=== PATIENT | female | born 1980 | race Caucasian/White ===

== ENCOUNTER 2021-12-21 22:56 | Emergency (ER) | payer OTHER, SELFPAY ==
--- NOTE | ~2021-12-21 | CT_ITS ---
EXAMINATION: CT abdomen pelvis w con DATE: 12/22/2021 01:56 INDICATION: Abdominal pain. Nausea and vomiting. TECHNIQUE: Computed tomography (CT) of the abdomen and pelvis was performed with 100 mL Omnipaque 300 intravenous contrast. Automated exposure control and iterative reconstruction technique were employe d. The dose-length product was 202.17 mGy-cm. COMPARISON: CT abdomen and pelvis 06/29/2016 FINDINGS: The visualized portions of the lung bases demonstrate calcified left lung nodule, consisten t with old granulomatous disease. No pleural effusion. The heart size is normal. No pericardial effus ion. There is periportal edema in the liver. There is delayed contrast enhancement of the liver relat natacha to the kidneys. The gallbladder is normal in size. Gallbladder wall thickening is noted, likely i nterstitial edema. The spleen, pancreas, adrenal glands, and kidneys are normal. There are no dilated loops of bowel. There are no pathologically enlarged lymph nodes. There is physiologic fluid in the pelvis. There is a tampon in the vagina. There is mild lumbar spondylosis. IMPRESSION: 1. Periportal edema. Gallbladder wall edema. Reviewed, dictated and finalized at location A.
[2021-12-21 23:49] VITALS: BP 142/79; PULSE 50; RESP 16; TEMP 36.4; O2SAT 100
[2021-12-21 23:57] VITALS: PULSE 47; RESP 10; O2SAT 100
[2021-12-21 23:58] VITALS: BP 148/93; PULSE 43; RESP 13; O2SAT 100
[2021-12-22] VITALS (21 sets, daily range): BP systolic 137–162; BP diastolic 68–103; PULSE 40–64; RESP 11–20; O2SAT 90–100
[2021-12-22 00:25] LABS: Basophils Percent Auto 0.3 % (0.2-1.2); Eosinophils Percent Auto 0.5 % (0-4.4); Hematocrit 37.3 % (37.0-47.0); Hemoglobin 12.6 g/dL (12.0-15.0); Immature Granulocyte Absolute 0.03 K/mm3 (0.00-0.031); Immature Granulocyte Percent A 0.5 % (0-0.5); Lymphocytes Absolute Auto 1.34 K/mm3 (0.9-3.2); Lymphocytes Percent Auto 22.9 % (18.3-44.2); Mean Corpuscular HGB Conc 33.8 g/dl (32-36); Mean Corpuscular Hemoglobin 30.2 pg (26-34); Mean Corpuscular Volume 89.4 fl (80-100); Mean Platelet Volume 9.8 fl (7.4-10.4); Monocytes Absolute Auto 0.2 K/mm3 (0.1-0.6); Monocytes Percent Auto 4.1 % (2.6-8.5); Neutrophils Absolute Auto 4.2 K/mm3 (1.3-6.7); Neutrophils Percent Auto 71.7 % (45.5-73.1); Platelet Count Result 263 k/mm3 (150-375); Red Blood Count 4.17 M/mm3 (4.2-5.4); Red Cell Distribution Width 12.7 % (11.5-14.5); White Blood Count 5.8 K/mm3 (4.5-10.0)
[2021-12-22 00:42] LABS: Alanine Aminotransferase 57 U/L (6-35); Albumin Level 4.4 g/dL (3.5-5.1); Alkaline Phosphatase 79 U/L (38-126); Anion Gap 6 mmol/L (8-16); Aspartate Amino Transferase 60 U/L (14-36); Bilirubin,Total 0.3 mg/dL (0.2-1.3); Blood Urea Nitrogen 9 mg/dL (7-17); Calcium 8.5 mg/dL (8.4-10.2); Carbon Dioxide 26 mmol/L (22-30); Chloride 103 mmol/L (98-107); Estimated CRCL calculation 71 ml/min; Estimated Glomerular Filt Rate > 60; Glucose 130 mg/dL (65-110); Lipase 48 U/L (23-300); Potassium 4.1 mmol/L (3.4-5.0); Sodium 135 mmol/L (137-145)
[2021-12-22] MEDS: ONDANSETRON INJ 4 MG/2 ML VIAL IV PUSH (00:45)
[2021-12-22] MEDS: fentaNYL CITRATE INJ (*CRX) 100 MCG/2 ML VIAL 50 MCG IV PUSH (00:45)
[2021-12-22] MEDS: SODIUM CHLORIDE 0.9% IV 1,000 ML 999 ML IV CONT (00:45)
[2021-12-22 01:55] LABS: Appearance Urine Clear (Clear); Bilirubin Urine Negative (Negative); Blood Urine Negative (Negative); Color Urine Yellow (Yellow); Glucose Urine UA Negative (Negative); Ketones Urine 2+ mg/dL (Negative); Leukocyte Esterase Ur Negative LEU/UL (Negative); Nitrate Urine Negative (Negative); Protein Urine Negative (Negative); Urobilinogen Urine 0.2 mg/dL (<2.0); pH Urine 7.5 (5.0-9.0)
[2021-12-22 02:02] LABS: Mucus Urine Rare /lpf; Squamous Epithelial Cell Urine Rare /hpf (Few); WBC Urine 0-3 /hpf
[2021-12-22 02:05] LABS: Add Urine Microscopic? YES
[2021-12-22] MEDS: fentaNYL CITRATE INJ (*CRX) 100 MCG/2 ML VIAL 25 MCG IV PUSH (02:27)
--- NOTE | 2021-12-22 03:07 | ED.ABDPAIN ---
HPI - Abdominal Pain General Chief Complaint: Abdominal Pain Stated Complaint: overy pain Time Seen by Provider: 12/22/21 00:08 Source: patient Mode of arrival: ambulatory Limitations: no limitations History of Present Illness HPI narrative: 41-year-old female presents today with complaints of abdominal pain that started about 3:00 but got worse at 5 PM. During examination patient is in the position crying. Patient with history of ovarian cyst. Patient states she has never felt pain like this before. Patient states the pain is worse than labor. Patient denies nausea, vomiting, back pain, recent illness. Patient tender to right lower quadrant. Related Data Home Medications Medication Instructions Recorded Confirmed bupropion HCl 150 mg tablet,12 hr PO 06/29/19 sustained-release dextroamphetamine-amphetamine ER PO 06/29/19 20 mg 24hr capsule,extend release (Adderall XR) levothyroxine 88 mcg tablet 06/29/19 vitamin with calcium tablet 06/29/19 no.72-iron 27 mg-folic acid 1 mg tablet (PrePlus) Allergies Allergy/AdvReac Type Severity Reaction Status Date / Time Penicillins Allergy Unknown Anaphylaxis Verified 12/21/21 23:52 Review of Systems Review of Systems: CONSTITUTIONAL: Denies fever, chills, or sweats. EYES: Denies visual changes, redness, or discharge. ENT: Denies rhinorrhea, congestion, sore throat, or otalgia. CARDIOVASCULAR: Denies chest pain, palpitations, or edema. RESPIRATORY: Denies cough or dyspnea. GASTROINTESTINAL: Positive for abdominal pain. Denies nausea, vomiting, or diarrhea. GENITOURINARY: Denies dysuria or hematuria. SKIN: Denies rash or itching. MUSCULOSKELETAL: Denies back pain, joint pain, or myalgia. NEUROLOGIC: Denies headache, numbness, dizziness, or weakness. PSYCHIATRIC: Denies anxiety or depression. Exam Narrative: GENERAL:illl-appearing, well-nourished, and in moderate distress. HEAD: Normocephalic, atraumatic. EYES: PERRLA and EOMI. NECK: Supple. No adenopathy or masses. No carotid bruits or JVD CHEST: Clear to auscultation. No respiratory distress. No wheezes rales or rhonchi HEART: Regular rate and rhythm. No murmur heard. Normal peripheral pulses. ABDOMEN: Soft, generalized abdominal tenderness, nondistended, normal active bowel sounds. EXTREMITIES: Normal range of motion. No edema. SKIN: Warm, dry, no rash. NEURO: No focal deficits. Alert and oriented x3. PSYCH: Normal mood and affect. Course Course Emergency Course: Patient still with pain after 2 doses of fentanyl and Toradol. Patient currently rating her pain tolerable. CT reviewed with patient. Labs reviewed. Patient to be discharged home with oral pain medications. Plan follow-up with primary and OB. Vital Signs Vital signs: Vital Signs Temperature 36.4 C 12/21/21 23:49 Pulse Rate 50 L 12/21/21 23:49 Respiratory Rate 16 12/21/21 23:49 Blood Pressure 142/79 H 12/21/21 23:49 Pulse Oximetry 100 12/21/21 23:49 Oxygen Delivery Room Air 12/21/21 23:49 Temperature 36.4 C 12/21/21 23:49 Pulse Rate 50 L 12/21/21 23:49 Respiratory Rate 16 12/21/21 23:49 Blood Pressure 142/79 H 12/21/21 23:49 Pulse Oximetry 100 12/21/21 23:49 Oxygen Delivery Room Air 12/21/21 23:49 MDM - Abdominal Pain MDM Narrative Medical decision making narrative: 41-year-old female HPI as noted. Suspect renal calculi versus appendicitis versus abdominal pain. CBC without concerning findings. CMP shows sodium 135, GFR greater than 60, AST and ALT slightly elevated at 60 and 57. Alk phos was normal at 79. Urine without signs of infection. CT shows small free pelvic fluid nonspecific but could reflect rupture of an ovarian cyst or follicle. Patient does endorse history of ovarian cyst. Also shows possible nonspecific enterocolitis. Nonspecific periportal edema noted patient instructed to follow-up with primary. Differential Diagnosis Differential diagnosis: Likel
[2021-12-22] MEDS: KETOROLAC 30 MG/ML VIAL (*BKC) IV PUSH (03:54)
== END 2021-12-22 05:15 | disposition home or self-care (01) ==
PROVIDERS: Emergency Medicine; Emergency Provider Nurse Practitioner Family; PCP Family Medicine Sports Medicine
DX: R10.9 Unspecified abdominal pain (principal); N83.8 Other noninflammatory disorders of ovary, fallopian tube and broad ligament
CPT/HCPCS: 36415; 74177; 80053; 81001; 81025; 83690; 85025; 96361; 96374; 96375; 96376; 99284; J1885; J2405; J3010; J7030; Q9967

== ENCOUNTER 2021-12-25 14:22 | Observation (INO) | payer OTHER, SELFPAY ==
--- NOTE | ~2021-12-25 | US_ITS ---
EXAMINATION: US abdomen limited DATE: 12/25/2021 16:34 INDICATION: Abdominal pain. TECHNIQUE: Multiple grayscale and Doppler ultrasound images of limited portions of the abdomen were o btained. COMPARISON: CT abdomen pelvis 12/22/2021. FINDINGS: Visualized portions of the pancreas are normal. Slight hyperechogenicity of the liver paren chyma. Subtle findings of periportal edema present, not as pronounced as in the prior CT. No surface nodularity. Normal hepatopetal flow in the main portal vein. The gallbladder is normal with no abnorm al wall thickening (gallbladder wall measures 2.4 mm), pericholecystic fluid or stones. The normal co mmon bile duct measures 3 mm. Positive sonographic Brunson sign. IMPRESSION: 1. Positive sonographic Brunson sign, with otherwise normal sonographic appearance of the gallbladder. Consider hepatobiliary scanning for further evaluation. 2. Increased liver echogenicity as can be seen with steatosis, fibrosis, and hepatitis. 3. Mild periportal edema. Reviewed, dictated and finalized at location K. IMPRESSION: 1. Positive sonographic Brunson sign, with otherwise normal sonographic appearan ce of the gallbladder. Consider hepatobiliary scanning for further evaluation. 2. Increased liver echogenicity as can be seen with steatosis, fibrosis, and he patitis. 3. Mild periportal edema.
--- NOTE | ~2021-12-25 | CT_ITS ---
EXAMINATION: CT abdomen pelvis w con DATE: 12/25/2021 17:55 INDICATION: Abdominal pain. Right upper quadrant pain. TECHNIQUE: Computed tomography (CT) of the abdomen and pelvis was performed with 100 mL Omnipaque-300 intravenous contrast. Automated exposure control and iterative reconstruction technique were employe d. The dose-length product was 188.67 mGy-cm. COMPARISON: 12/22/2021. FINDINGS: Lower thorax: Unremarkable Liver: Heterogeneous enhancement of the liver parenchyma. Mild enlargement. Biliary/Gallbladder: Gallbladder is normal. No bile duct dilation. Pancreas: No mass or duct dilation. Spleen: Normal. Adrenals:No mass. Kidneys: No mass, stone, or hydronephrosis. GI tract: Distal esophageal and gastric wall edema. No small or large bowel dilation. Appendix not vi sualized. Mesentery/Peritoneum: No ascites, mass, or free air. Retroperitoneum: No mass. Pelvis: Pelvic organs are within normal limits. Soft Tissues: Soft tissues and body wall unremarkable. Bones: No acute osseous finding. IMPRESSION: Esophagitis/gastritis. Interval resolution of the previously described gallbladder wall edema and per iportal edema. Heterogeneous liver parenchyma as can be seen with fibrosis and hepatitis. Reviewed, dictated and finalized at location K. IMPRESSION: Esophagitis/gastritis. Interval resolution of the previously described gallblad noy wall edema and periportal edema. Heterogeneous liver parenchyma as can be s een with fibrosis and hepatitis.
--- NOTE | ~2021-12-25 | NM_ITS ---
EXAMINATION: NM hepatobiliary w pharm DATE: 12/27/2021 09:07 INDICATION: Possible cholecystitis COMPARISON: None. TECHNIQUE: 5 mCi Tc-99m mebrofenin (Choletec) was administered intravenously. Scintigraphic images o f the abdomen were obtained for one hour. 1 mcg sincalide (Kinevac) was administered by slow intraven ous infusion, and imaging was continued for 30 minutes. Gallbladder ejection fraction was calculated by the technologist. FINDINGS: There is normal clearance of radiotracer from the blood pool. There is homogeneous tracer uptake by t he liver. Activity progresses to the gallbladder and bowel. The gallbladder ejection fraction (GBEF) is 79% (normal 10-90%, but most patient with gallbladder dysfunction have GBEF < 35% which does over lap with the normal range). IMPRESSION: 1. Normal hepatobiliary scan Reviewed, dictated and finalized at location A.
[2021-12-25 14:26] VITALS: BP 134/84; PULSE 57; RESP 18; O2SAT 98
--- NOTE | 2021-12-25 14:40 | ED.ABDPAIN ---
HPI - Abdominal Pain General Chief Complaint: Abdominal Pain Stated Complaint: abd pain Time Seen by Provider: 12/25/21 14:24 Source: RN notes reviewed History of Present Illness HPI narrative: Patient presents emergency room from home for abdominal pain. Patient states pain began approximately 11 AM today. The pain is located in the right side the abdomen does not radiate described as sharp and stabbing. Associated nausea vomiting. Denies any fevers or chills chest pain shortness of breath diarrhea or any other symptoms. States she not take anything for the pain at home. Patient was seen here earlier this week for abdominal pain and was diagnosed with ovarian cyst at that time and sent home states her pain has been better until this afternoon Related Data Home Medications Medication Instructions Recorded Confirmed bupropion HCl 150 mg tablet,12 hr PO 06/29/19 sustained-release dextroamphetamine-amphetamine ER PO 06/29/19 20 mg 24hr capsule,extend release (Adderall XR) levothyroxine 88 mcg tablet 06/29/19 vitamin with calcium tablet 06/29/19 no.72-iron 27 mg-folic acid 1 mg tablet (PrePlus) Allergies Allergy/AdvReac Type Severity Reaction Status Date / Time Penicillins Allergy Unknown Anaphylaxis Verified 12/25/21 14:38 Review of Systems Review of Systems: Gen.: Denies fevers or chills ENT: Denies congestion Respiratory: Denies shortness of breath or cough CV: Denies chest pain or palpitations GI: See HPI denies burning, urgency, frequency or hematuria Musculoskeletal: Denies back pain or muscle pain Neuro: Denies numbness, tingling, weakness or focal weakness Skin: Denies rash Except as documented, all other systems reviewed and negative [facility] Past Medical History Medical History (Updated 12/25/21 @ 18:12 by Mukesh Noel DO) Patient denies significant medical history Social History Social History (Updated 12/25/21 @ 14:41 by Mukesh Noel DO) Smoking status: Never smoker Exam Narrative: APPEARANCE: No acute distress, nontoxic, resting in bed HEENT: Normocephalic, atraumatic, OMM RESPIRATORY: No respiratory distress, clear to auscultation bilaterally with no rhonchi wheezing or rales CARDIOVASCULAR: RRR s murmur ABDOMINAL: Soft nondistended tender palpation right upper quadrant right lower quadrant mild tenderness left upper quadrant left lower quadrant no rebound or guarding MUSCULOSKELETAl: Moves all extremities. No clubbing, cyanosis or edema. NEURO: Awake and alert. Following commands, speech normal, no focal deficits SKIN:: Warm, dry. Normal Color PSYCHIATRIC: Normal affect/mood Course Course Emergency Course: Reviewed previous records including previous CT scan Patient went for ultrasound shows positive sonographic Brunson's continues to have severe pain in the right side of the abdomen with tenderness palpation we will repeat CT scan at this time Discussed with Dr. Ortiz presentation work-up agrees with consult Discussed with RINA Cason for Dr. Burleson agrees with admission Discussed with patient and family results of workup and diagnosis. Discussed need for admission. Patient and family understand and agree to current treatment plan Vital Signs Vital signs: Vital Signs Pulse Rate 57 L 12/25/21 14:26 Respiratory Rate 18 12/25/21 14:26 Blood Pressure 134/84 12/25/21 14:26 Pulse Oximetry 98 12/25/21 14:26 Oxygen Delivery Room Air 12/25/21 14:26 Pulse Rate 57 L 12/25/21 14:26 Respiratory Rate 18 12/25/21 14:26 Blood Pressure 134/84 12/25/21 14:26 Pulse Oximetry 98 12/25/21 14:26 Oxygen Delivery Room Air 12/25/21 14:26 MDM - Abdominal Pain Lab Data Result diagrams: 12/25/21 14:35 12/25/21 14:35 Labs: Lab Results 12/25/21 12/25/21 12/25/21 Range/Units 14:35 14:35 15:25 WBC 8.9 (4.5-10.0) K/mm3 RBC 5.22 (4.2-5.4) M/mm3 Hgb 15.4 H (12.0-15.0) g
[2021-12-25] MEDS: KETOROLAC 30 MG/ML VIAL (*BKC) IV PUSH (14:41)
[2021-12-25] MEDS: SODIUM CHLORIDE 0.9% IV 1,000 ML 999 ML IV CONT (14:41)
[2021-12-25] MEDS: ONDANSETRON INJ 4 MG/2 ML VIAL IV PUSH (14:42)
[2021-12-25 14:47] LABS: Basophils Absolute Auto 0.1 K/mm3 (0.0-0.1); Basophils Percent Auto 0.6 % (0.2-1.2); Eosinophils Absolute Auto 0.1 K/mm3 (0-0.3); Eosinophils Percent Auto 1.5 % (0-4.4); Hematocrit 45.3 % (37.0-47.0); Hemoglobin 15.4 g/dL (12.0-15.0); Immature Granulocyte Absolute 0.02 K/mm3 (0.00-0.031); Immature Granulocyte Percent A 0.2 % (0-0.5); Lymphocytes Absolute Auto 3.06 K/mm3 (0.9-3.2); Lymphocytes Percent Auto 34.2 % (18.3-44.2); Mean Corpuscular Hemoglobin 29.5 pg (26-34); Mean Corpuscular Volume 86.8 fl (80-100); Mean Platelet Volume 9.2 fl (7.4-10.4); Monocytes Absolute Auto 0.9 K/mm3 (0.1-0.6); Monocytes Percent Auto 9.6 % (2.6-8.5); Neutrophils Absolute Auto 4.8 K/mm3 (1.3-6.7); Neutrophils Percent Auto 53.9 % (45.5-73.1); Platelet Count Result 373 k/mm3 (150-375); Red Blood Count 5.22 M/mm3 (4.2-5.4); Red Cell Distribution Width 12.4 % (11.5-14.5); White Blood Count 8.9 K/mm3 (4.5-10.0)
[2021-12-25 15:04] LABS: Alanine Aminotransferase 36 U/L (6-35); Albumin Level 4.9 g/dL (3.5-5.1); Alkaline Phosphatase 91 U/L (38-126); Anion Gap 8 mmol/L (8-16); Aspartate Amino Transferase 26 U/L (14-36); Bilirubin,Total 0.5 mg/dL (0.2-1.3); Blood Urea Nitrogen 13 mg/dL (7-17); Calcium 8.9 mg/dL (8.4-10.2); Carbon Dioxide 29 mmol/L (22-30); Chloride 99 mmol/L (98-107); Estimated CRCL calculation 63 ml/min; Estimated Glomerular Filt Rate > 60; Glucose 113 mg/dL (65-110); Lipase 141 U/L (23-300); Potassium 3.2 mmol/L (3.4-5.0); Sodium 136 mmol/L (137-145)
[2021-12-25 15:49] LABS: Appearance Urine Clear (Clear); Bilirubin Urine 1+ (Negative); Blood Urine Negative (Negative); Color Urine Yellow (Yellow); Glucose Urine UA Negative (Negative); Ketones Urine 2+ mg/dL (Negative); Leukocyte Esterase Ur Negative LEU/UL (Negative); Nitrate Urine Negative (Negative); Protein Urine Negative (Negative); Specific Grav Ur 1.025 (1.001-1.035); Urobilinogen Urine 0.2 mg/dL (<2.0); pH Urine 5.5 (5.0-9.0)
[2021-12-25 15:52] LABS: Bacteria Urine Trace /hpf; Calcium Oxalate Crystals Urine Present /hpf; Mucus Urine Rare /lpf; RBC Urine 0-2 /hpf (0-2); Squamous Epithelial Cell Urine Few /hpf (Few); WBC Urine 0-3 /hpf
[2021-12-25 15:53] LABS: Add Urine Microscopic? YES
[2021-12-25] MEDS: MORPHINE SULFATE (*CRX) 4 MG/ML INJ IV PUSH (15:56)
[2021-12-25] MEDS: MORPHINE SULFATE (*CRX) 2 MG/ML INJ IV PUSH ×2 (17:30→20:07)
[2021-12-25] MEDS: PROMETHAZINE HCL 25 MG/ML AMPUL 12.5 MG IV PUSH (17:56)
[2021-12-25] MEDS: SODIUM CHLORIDE 0.9% IV 50 ML 350 ML (17:57)
--- NOTE | 2021-12-25 18:00 | PM.IMHP ---
H&P: HPI History of Present Illness Date/Time: 12/25/21 18:00 Chief Complaint: Abdominal pain, nausea, vomiting. Narrative: This is a pleasant 41-year-old female with history of ovarian cyst and hypothyroidism who presented to the emergency department from home for evaluation of abdominal pain, nausea, and vomiting. She had pasta with Won sauce for lunch last Sunday and not long thereafter she developed severe, right-sided abdominal pain. The pain continued for several hours and she was seen in the emergency department later that evening and she felt better after receiving 2 doses of fentanyl; she states Toradol did not help whatsoever. AST and ALT were slightly elevated and her other labs were pretty unremarkable. CT of the abdomen and pelvis showed a small amount of free fluid in the pelvis and with her history of ovarian cysts it was thought that her pain was likely related to the same and she was discharged home with instructions to follow-up with her intelligence officer basic. She felt better the last couple of days however last night after eating fast food for dinner her pain returned. Her pain now seems to be diffusely throughout the upper abdomen and it is associated with sweats, nausea, and vomiting. She tried to take the hydrocodone that she was prescribed last week though that did not seem to help much. She had a positive sonographic Brunson's sign on right upper quadrant ultrasound of the gallbladder was otherwise normal. A subsequent CT of the abdomen and pelvis did show findings of esophagitis and gastritis; gallbladder was normal. With further questioning she rarely has indigestion. She does not drink any significant quantities of alcohol or caffeine. She takes ibuprofen may be a couple of times a month for generalized aches and pains. She denies hematemesis, melena, and hematochezia. She has no sick contacts. No diarrhea. No fever or chills. Review of Systems Review of Systems: Twelve systems were reviewed and are negative except for as per HPI. [facility] Past Medical History Medical History (Updated 12/25/21 @ 22:48 by Kamla Hughes PA-C) Hypothyroidism Surgical History Surgical History (Updated 12/25/21 @ 22:43 by Kamla Hughes PA-C) History of repair of ACL Bilateral. Family History Family History (Updated 12/25/21 @ 22:43 by Kamla G. Gerling, PA-C) Other No significant family history Social History Social History (Updated 12/25/21 @ 22:44 by Kamla Hughes PA-C) Social History: Surrogate decision maker: Skinny Acuña, spouse. Code status: Full code. Smoking status: Light tobacco smoker Tobacco type: cigarettes and e-cigarettes/vaping Second hand tobacco smoke exposure: Yes Alcohol intake: never Substance use: current Substance use type: marijuana Additional living arrangements comments: The patient lives with her and their 2 young children in [place]. 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 Spiritual care concerns: No Meds Home Medications and Allergies Home Medications Medication Instructions Recorded Confirmed Type bupropion HCl 150 mg tablet,12 hr 150 mg PO DAILY 06/29/19 12/25/21 History sustained-release dextroamphetamine-amphetamine ER 20 mg PO DAILY 06/29/19 12/25/21 History 20 mg 24hr capsule,extend release (Adderall XR) levothyroxine 88 mcg tablet 25 mcg PO DAILY 06/29/19 12/25/21 History hydrocodone 7.5 mg-acetaminophen 1 tablet PO Q8H PRN pain #12 tabs 12/22/21 12/25/21 Rx 325 mg tablet ondansetron 4 mg disintegrating 4 mg PO Q8H PRN nausea and 12/22/21 12/25/21 Rx tablet vomiting #14 tabs vits no.126-ferrous fum 1 tablet PO DAILY 12/25/21 12/25/21 History 28 mg iron-folic acid 800 mcg tablet (Classic ) vitamin E 1,000 unit tablet 1,000 tablet PO DAILY 12/25/21 12/25/21 History Allergies Allergy/AdvReac Type Severity Reaction Status Date / Time Penicillins Al
[2021-12-25] MEDS: PANTOPRAZOLE SODIUM IV 40 MG VIAL IV PUSH (18:34)
[2021-12-25] MEDS: SODIUM CHLORIDE 0.9% IV 1,000 ML 100 ML IV CONT (18:34)
[2021-12-25 20:31] VITALS: BP 145/90; PULSE 54; RESP 16; TEMP 36.4; O2SAT 100
[2021-12-25 20:35] VITALS: BMI 19.2
--- NOTE | 2021-12-25 21:24 | ADMGEN ---
This patient, Marcela Acuña, was admitted to Medical Room 246-01. Patient/family oriented to hospital policies and general routines including ID bracelet, bed and alarms, visiting hours, pain management, procedures, bathroom and other care routines, personal items, smoking policy, room service/diet, and visiting hours. Information on how to activate the Rapid Response Team has been discussed. Patient/Family are encouraged to report perceived risks to care and to ask questions if they do not understand what they are told or what they should do.
[2021-12-25 21:56] VITALS: BP 140/67; PULSE 55; RESP 14; TEMP 37.1; O2SAT 98
[2021-12-25] MEDS: POTASSIUM CHLORIDE 20 MEQ TABLET PO (23:20)
[2021-12-26] MEDS: SODIUM CHLORIDE 0.9% IV 1,000 ML 100 ML IV CONT ×2 (05:22→15:43)
[2021-12-26 05:25] LABS: Basophils Absolute Auto 0.1 K/mm3 (0.0-0.1); Basophils Percent Auto 0.8 % (0.2-1.2); Eosinophils Absolute Auto 0.1 K/mm3 (0-0.3); Eosinophils Percent Auto 1.6 % (0-4.4); Hematocrit 38.2 % (37.0-47.0); Hemoglobin 12.9 g/dL (12.0-15.0); Immature Granulocyte Absolute 0.02 K/mm3 (0.00-0.031); Immature Granulocyte Percent A 0.3 % (0-0.5); Lymphocytes Absolute Auto 2.41 K/mm3 (0.9-3.2); Lymphocytes Percent Auto 37.9 % (18.3-44.2); Mean Corpuscular HGB Conc 33.8 g/dl (32-36); Mean Corpuscular Hemoglobin 30.1 pg (26-34); Mean Platelet Volume 9.6 fl (7.4-10.4); Monocytes Absolute Auto 0.9 K/mm3 (0.1-0.6); Monocytes Percent Auto 14.3 % (2.6-8.5); Neutrophils Absolute Auto 2.9 K/mm3 (1.3-6.7); Neutrophils Percent Auto 45.1 % (45.5-73.1); Platelet Count Result 295 k/mm3 (150-375); Red Blood Count 4.29 M/mm3 (4.2-5.4); Red Cell Distribution Width 12.6 % (11.5-14.5); White Blood Count 6.4 K/mm3 (4.5-10.0)
[2021-12-26 05:43] VITALS: BP 132/75; PULSE 62; RESP 14; TEMP 36.7; O2SAT 99
[2021-12-26 05:51] LABS: Alanine Aminotransferase 23 U/L (6-35); Albumin Level 3.6 g/dL (3.5-5.1); Alkaline Phosphatase 58 U/L (38-126); Anion Gap 4 mmol/L (8-16); Aspartate Amino Transferase 19 U/L (14-36); Bilirubin,Total 0.6 mg/dL (0.2-1.3); Blood Urea Nitrogen 7 mg/dL (7-17); Calcium 7.6 mg/dL (8.4-10.2); Carbon Dioxide 26 mmol/L (22-30); Chloride 104 mmol/L (98-107); Estimated CRCL calculation 71 ml/min; Estimated Glomerular Filt Rate > 60; Glucose 101 mg/dL (65-110); Lipase 184 U/L (23-300); Potassium 3.8 mmol/L (3.4-5.0); Sodium 134 mmol/L (137-145)
[2021-12-26] MEDS: LEVOTHYROXINE SODIUM 25 MCG TABLET PO (05:54)
[2021-12-26] MEDS: PANTOPRAZOLE SODIUM IV 40 MG VIAL IV PUSH (07:28)
[2021-12-26] MEDS: MORPHINE SULFATE (*CRX) 2 MG/ML INJ IV PUSH ×4 (07:31→23:33)
--- NOTE | 2021-12-26 11:15 | PM.IMPN ---
Progress Note: A&P Assessment and Plan (1) Abdominal pain: Code(s): R10.9 - Unspecified abdominal pain Status: Acute Assessment and Plan: CT of the abdomen and pelvis on 12/22/2021 showed gallbladder wall thickening which was felt to be secondary to interstitial edema repeat CT today gallbladder was unremarkable Symptoms are more likely related to esophagitis/gastritis Right upper abdominal pain after eating fatty meals gallbladder dysfunction should be considered HIDA scan ordered General surgery on board Liver enzymes slightly elevated upon admission, currently normal IV fluids for hydration Zofran for nausea Pain medications on board GI also consulted (2) Esophagitis with gastritis: Code(s): K29.70 - Gastritis, unspecified, without bleeding; K20.90 - Esophagitis, unspecified without bleeding Status: Acute Assessment and Plan: CT of the abdomen shows gastritis/esophagitis GI consulted Supportive care IV fluids Pain medications Zofran IV protonix also on board (3) Dehydration: Code(s): E86.0 - Dehydration Status: Acute Assessment and Plan: Continue judicious IV fluid rehydration. (4) Hypothyroidism: Code(s): E03.9 - Hypothyroidism, unspecified Status: Acute Assessment and Plan: Continue levothyroxine TSH 3.830 Time Spent With Patient Time with patient: Greater than 35 minutes Subjective Date/time seen: 12/26/21 11:15 Interval history: 12/26/21 1115 Patient states she is doing okay today however she does have some pain still which is a dull ache especially on the right side. Patient rates her pain as 6/10. She denies having any nausea or vomiting at this time but she does get short of breath with the pain. She denies any chest pain, diarrhea, constipation, weakness or fatigue. Patient is due for a HIDA scan in the morning. 12/25/21? 18:00 This is a pleasant 41-year-old female with history of ovarian cyst and hypothyroidism who presented to the emergency department from home for evaluation of abdominal pain, nausea, and vomiting. She had pasta with Won sauce for lunch last Sunday and not long thereafter she developed severe, right-sided abdominal pain. The pain continued for several hours and she was seen in the emergency department later that evening and she felt better after receiving 2 doses of fentanyl; she states Toradol did not help whatsoever. AST and ALT were slightly elevated and her other labs were pretty unremarkable.? CT of the abdomen and pelvis showed a small amount of free fluid in the pelvis and with her history of ovarian cysts it was thought that her pain was likely related to the same and she was discharged home with instructions to follow-up with her pot tender. She felt better the last couple of days however last night after eating fast food for dinner her pain returned. Her pain now seems to be diffusely throughout the upper abdomen and it is associated with sweats, nausea, and vomiting. She tried to take the hydrocodone that she was prescribed last week though that did not seem to help much. She had a positive sonographic Brunson's sign on right upper quadrant ultrasound of the gallbladder was otherwise normal. A subsequent CT of the abdomen and pelvis did show findings of esophagitis and gastritis; gallbladder was normal. With further questioning she rarely has indigestion. She does not drink any significant quantities of alcohol or caffeine. She takes ibuprofen may be a couple of times a month for generalized aches and pains. She denies hematemesis, melena, and hematochezia. She has no sick contacts. No diarrhea. No fever or chills. Review of Systems Review of Systems: All systems reviewed & are unremarkable except as noted in HPI and below Exam Const: General: cooperative, healthy appearing, no acute distress, well developed, alert and awake Nutritional Appearance:
--- NOTE | 2021-12-26 11:24 | PM.CNGS ---
Assessment and Plan Assessment and plan (1) Intractable right upper quadrant abdominal pain: Code(s): R10.11 - Right upper quadrant pain Status: Acute Assessment and Plan: I have reviewed the imaging up to this point. Patient did have some gallbladder wall thickening on her CT when she came into the ED on 12/22, but that appears to have resolved on the follow-up CT. No gallstones have been identified and she does not appear to be the typical patient type to develop acalculous cholecystitis. Will plan to get a HIDA scan to assess for acute cholecystitis. Await GI of al for any further workup. Could consider MRCP is well if HIDA scan is completely normal. (2) Abnormal ultrasound of liver: Code(s): R93.2 - Abnormal findings on diagnostic imaging of liver and biliary tract Status: Acute Assessment and Plan: Increased liver echogenicity seen but patient does not have history of heavy alcohol use or other hepatotoxic medications. History of Present Illness Consult details Consult date: 12/26/21 Reason for consult: other (Right upper quadrant pain) Requesting physician: Mukesh Noel DO Narrative: This is a 41-year-old woman asked to see for right upper quadrant pain and possible cholecystitis. The patient was in her usual state of health until 4 days ago and she had rather acute onset abdominal pain. She states that she had eaten fettuccine evie at work and a couple hours later began experiencing some abdominal pain. She was having some lower and upper abdominal pain at that time and thought that this might have been food poisoning. She did have some cold sweats and eventually vomited. She went to the emergency department on 12/[address] showed periportal edema and gallbladder wall thickening as well as fluid in the pelvis. She did have very slightly elevated liver enzymes at that time. He was discharged home from the emergency department and states that she slept for a couple days and was feeling better. She did eat a hamburger on Sunday and about 12 hours later began experiencing pain again. She denies any change in her bowel habits. She has never had symptoms like this in the past. She denies any history of heavy alcohol use or heavy NSAID use. She presented back to the emergency department last night and follow-up ultrasound and CT were obtained. Ultrasound showed increased liver echogenicity and mild periportal edema but no gallbladder wall thickening or cholelithiasis. She did have a positive sonographic Brunson sign. CT showed no gallbladder wall thickening but there was mild esophagitis and gastritis. She was admitted for further workup and treatment. Review of Systems Review of Systems: All systems reviewed & are unremarkable except as noted in HPI and below Constitutional: Constitutional: Denies fever(s) Eyes: Eyes: Denies change in vision ENT: Denies hearing loss, Denies neck pain and Denies sore throat Cardiovascular: Cardiovascular: Denies chest pain and Denies dyspnea Respiratory: Respiratory: Denies cough, Denies dyspnea and Denies wheezing Gastrointestinal: Gastrointestinal: Reports as per HPI Genitourinary: Genitourinary: Denies hematuria and Denies dysuria Musculoskeletal: Musculoskeletal: Denies arthralgias, Denies joint swelling and Denies neck pain Allergic/Immunologic: Allergic/Immunologic: Denies wheezing [facility] Past Medical History Medical History (Updated 12/25/21 @ 22:48 by Kamla Hughes PA-C) Hypothyroidism Surgical History Surgical History (Updated 12/25/21 @ 22:43 by Kamla Hughes PA-C) History of repair of ACL Bilateral. Family History Family History (Updated 12/25/21 @ 22:43 by Kamla Hughes PA-C) Other No significant family history Social History Social History (Updated 12/25/21 @ 22:44 by Kamla Hughes PA-C) Social History: Surrogate decision maker: Skinny Acuña, spouse. Code status: Full
[2021-12-26 12:33] LABS: Hepatitis B Surface Antigen Negative (Negative)
[2021-12-26 12:38] LABS: HAV RESULT Negative (Negative); Hepatitis B Core IgM Result Negative (Negative)
[2021-12-26 12:51] LABS: Hepatitis C Virus Antibody Negative (Negative)
[2021-12-26 14:20] VITALS: BP 110/70; PULSE 58; RESP 14; TEMP 36.6; O2SAT 100
--- NOTE | 2021-12-26 16:59 | WPDGICN ---
Assessment and Plan Assessment and plan (1) Intractable right upper quadrant abdominal pain: Code(s): R10.11 - Right upper quadrant pain Status: Acute Assessment and Plan: will proceed with egd tomorrow given abnormal CT findings suggestive of esophagitis/gastritis more recommendations after egd also will get HIDA scan to assess GB (2) Esophagitis with gastritis: Code(s): K29.70 - Gastritis, unspecified, without bleeding; K20.90 - Esophagitis, unspecified without bleeding Status: Acute Assessment and Plan: ppi egd tomorrow (3) Dehydration: Code(s): E86.0 - Dehydration Status: Acute Assessment and Plan: treated (4) Hypokalemia: Code(s): E87.6 - Hypokalemia Status: Acute (5) Abdominal pain: Code(s): R10.9 - Unspecified abdominal pain Status: Acute Assessment and Plan: surgery on board GI Consult Note Consult date/time: 12/26/21 16:59 Reason for consult: n/v, ruq pain HPI: Marcela Acuña is a 41 year old female who is healthy that about 4 days ago had acute onset abdominal pain after eating fettApiphanye evie at work, developed dyspepsia with worsening pain and nausea finally, came to ER. CT showed periportal edema and gallbladder wall thickening as well as fluid in the pelvis with mild elevated liver enzymes at that time.? She was discharged home with pain meds and slept for a couple days. This time she had a hamburger on Sunday and 12 hours later began experiencing pain again in epigastric and ruq (denies similar episodes previously and no alcohol).? This time she had an ultrasound showed increased liver echogenicity and mild periportal edema but no more gallbladder wall thickening or cholelithiasis although had positive sonographic Brunson sign.? CT showed no gallbladder wall thickening but there was mild esophagitis and gastritis. She denies h/o reflux and is not taking any antacids at home. Never had scopes. Review of Systems Review of Systems: All systems reviewed & are unremarkable except as noted in HPI and below Constitutional: Constitutional: Denies fever(s) Eyes: Eyes: Denies change in vision ENT: Denies hearing loss, Denies neck pain and Denies sore throat Cardiovascular: Cardiovascular: Denies chest pain and Denies dyspnea Respiratory: Respiratory: Denies cough, Denies dyspnea and Denies wheezing Gastrointestinal: Gastrointestinal: Reports as per HPI Genitourinary: Genitourinary: Denies hematuria and Denies dysuria Musculoskeletal: Musculoskeletal: Denies arthralgias, Denies joint swelling and Denies neck pain Allergic/Immunologic: Allergic/Immunologic: Denies wheezing [facility] Past Medical History Medical History (Updated 12/25/21 @ 22:48 by Kamla Hughes PA-C) Hypothyroidism Surgical History Surgical History (Updated 12/25/21 @ 22:43 by Kamla Hughes PA-C) History of repair of ACL Bilateral. Family History Family History (Updated 12/25/21 @ 22:43 by Kamla Hughes PA-C) Other No significant family history Social History Social History (Updated 12/25/21 @ 22:44 by Kamla Hughes PA-C) Social History: Surrogate decision maker: Skinny Acuña, spouse. Code status: Full code. Smoking status: Light tobacco smoker Tobacco type: cigarettes and e-cigarettes/vaping Second hand tobacco smoke exposure: Yes Alcohol intake: never Substance use: current Substance use type: marijuana Additional living arrangements comments: The patient lives with her and their 2 young children in [place]. 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 Spiritual care concerns: No Meds Home Medications and Allergies Home Medications Medication Instructions Recorded Confirmed Type bupropion HCl 150 mg tablet,12 hr 150 mg PO DAILY 06/29/19 12/25/21 History sustained-release dextroamphetamine-amphetamine ER 20 mg PO DAILY 1
[2021-12-26 20:46] VITALS: BP 101/61; PULSE 58; RESP 12; TEMP 36.4; O2SAT 96
[2021-12-27] MEDS: SODIUM CHLORIDE 0.9% IV 1,000 ML 100 ML IV CONT (02:36)
[2021-12-27 05:43] LABS: Basophils Absolute Auto 0.1 K/mm3 (0.0-0.1); Basophils Percent Auto 1.1 % (0.2-1.2); Eosinophils Absolute Auto 0.3 K/mm3 (0-0.3); Eosinophils Percent Auto 4.9 % (0-4.4); Hematocrit 33.7 % (37.0-47.0); Hemoglobin 11.2 g/dL (12.0-15.0); Immature Granulocyte Absolute 0.01 K/mm3 (0.00-0.031); Immature Granulocyte Percent A 0.2 % (0-0.5); Lymphocytes Absolute Auto 2.62 K/mm3 (0.9-3.2); Lymphocytes Percent Auto 47.9 % (18.3-44.2); Mean Corpuscular HGB Conc 33.2 g/dl (32-36); Mean Corpuscular Volume 90.3 fl (80-100); Mean Platelet Volume 9.8 fl (7.4-10.4); Monocytes Absolute Auto 0.6 K/mm3 (0.1-0.6); Monocytes Percent Auto 10.8 % (2.6-8.5); Neutrophils Absolute Auto 1.9 K/mm3 (1.3-6.7); Neutrophils Percent Auto 35.1 % (45.5-73.1); Platelet Count Result 232 k/mm3 (150-375); Red Blood Count 3.73 M/mm3 (4.2-5.4); Red Cell Distribution Width 12.6 % (11.5-14.5); White Blood Count 5.5 K/mm3 (4.5-10.0)
[2021-12-27 05:54] LABS: Alanine Aminotransferase 18 U/L (6-35); Albumin Level 3.1 g/dL (3.5-5.1); Alkaline Phosphatase 46 U/L (38-126); Anion Gap 2 mmol/L (8-16); Aspartate Amino Transferase 20 U/L (14-36); Bilirubin,Total 0.6 mg/dL (0.2-1.3); Blood Urea Nitrogen 6 mg/dL (7-17); Calcium 7.5 mg/dL (8.4-10.2); Carbon Dioxide 27 mmol/L (22-30); Chloride 107 mmol/L (98-107); Estimated CRCL calculation 71 ml/min; Estimated Glomerular Filt Rate > 60; Glucose 87 mg/dL (65-110); Magnesium 1.8 mg/dL (1.6-2.3); Potassium 3.3 mmol/L (3.4-5.0); Sodium 136 mmol/L (137-145)
[2021-12-27 05:56] VITALS: BP 116/60; PULSE 56; RESP 14; TEMP 37; O2SAT 96
[2021-12-27] MEDS: LEVOTHYROXINE SODIUM 25 MCG TABLET PO (06:16)
--- NOTE | 2021-12-27 07:26 | PM.IMPN ---
Progress Note: A&P Assessment and Plan (1) Abdominal pain: Code(s): R10.9 - Unspecified abdominal pain Status: Acute Assessment and Plan: CT of the abdomen and pelvis on 12/22/2021 showed gallbladder wall thickening which was felt to be secondary to interstitial edema repeat CT gallbladder was unremarkable (12/25/21) Symptoms are more likely related to esophagitis/gastritis Right upper abdominal pain after eating fatty meals gallbladder dysfunction should be considered HIDA scan ordered General surgery on board Liver enzymes slightly elevated upon admission, currently normal IV fluids for hydration Zofran for nausea Pain medications on board GI also consulted (2) Esophagitis with gastritis: Code(s): K29.70 - Gastritis, unspecified, without bleeding; K20.90 - Esophagitis, unspecified without bleeding Status: Acute Assessment and Plan: CT of the abdomen shows gastritis/esophagitis GI consulted Supportive care IV fluids Pain medications Zofran IV protonix also on board (3) Dehydration: Code(s): E86.0 - Dehydration Status: Acute Assessment and Plan: Continue judicious IV fluid rehydration. (4) Hypothyroidism: Code(s): E03.9 - Hypothyroidism, unspecified Status: Acute Assessment and Plan: Continue levothyroxine TSH 3.830 Time Spent With Patient Time with patient: Greater than 35 minutes Subjective Date/time seen: 12/27/21 07:26 Interval history: 12/27/21 12/26/21 1115 Patient states she is doing okay today however she does have some pain still which is a dull ache especially on the right side. Patient rates her pain as 6/10. She denies having any nausea or vomiting at this time but she does get short of breath with the pain. She denies any chest pain, diarrhea, constipation, weakness or fatigue. Patient is due for a HIDA scan in the morning. 12/25/21? 18:00 This is a pleasant 41-year-old female with history of ovarian cyst and hypothyroidism who presented to the emergency department from home for evaluation of abdominal pain, nausea, and vomiting. She had pasta with Won sauce for lunch last Sunday and not long thereafter she developed severe, right-sided abdominal pain. The pain continued for several hours and she was seen in the emergency department later that evening and she felt better after receiving 2 doses of fentanyl; she states Toradol did not help whatsoever. AST and ALT were slightly elevated and her other labs were pretty unremarkable.? CT of the abdomen and pelvis showed a small amount of free fluid in the pelvis and with her history of ovarian cysts it was thought that her pain was likely related to the same and she was discharged home with instructions to follow-up with her occupational therapy director. She felt better the last couple of days however last night after eating fast food for dinner her pain returned. Her pain now seems to be diffusely throughout the upper abdomen and it is associated with sweats, nausea, and vomiting. She tried to take the hydrocodone that she was prescribed last week though that did not seem to help much. She had a positive sonographic Brunson's sign on right upper quadrant ultrasound of the gallbladder was otherwise normal. A subsequent CT of the abdomen and pelvis did show findings of esophagitis and gastritis; gallbladder was normal. With further questioning she rarely has indigestion. She does not drink any significant quantities of alcohol or caffeine. She takes ibuprofen may be a couple of times a month for generalized aches and pains. She denies hematemesis, melena, and hematochezia. She has no sick contacts. No diarrhea. No fever or chills. Review of Systems Review of Systems: All systems reviewed & are unremarkable except as noted in HPI and below Exam Const: General: cooperative, healthy appearing, no acute distress, well developed, alert and awake Nutr
[2021-12-27] MEDS: LACTATED RINGERS 1,000 ML 150 ML IV CONT (09:57)
--- NOTE | 2021-12-27 10:33 | WPDANESEPPF ---
Anes - Initial Pre Proc Eval Procedure: Operation Date: 12/27/21 12:00 Proposed Procedures p Esophagogastroduodenoscopy - Matt Mehta MD Date/Time: 12/27/21 10:33 Surgeon: Romelia Burleson MD Pre Op Diagnosis: Right Upper Quadrant Abd Pain Intractable Patient Data Age: 41 Gender: F Height: 1.6 m Weight: 49.2 kg Last Vital Signs Temp 98.6 F 12/27/21 05:56 Pulse 56 L 12/27/21 05:56 Resp 14 12/27/21 05:56 BP 116/60 12/27/21 05:56 Pulse Ox 96 12/27/21 05:56 O2 Del Method Room Air 12/26/21 08:00 Allergies Allergy/AdvReac Type Severity Reaction Status Date / Time Penicillins Allergy Unknown Anaphylaxis Verified 12/27/21 09:53 Home Medications Medication Instructions Recorded Confirmed Type bupropion HCl 150 mg tablet,12 hr 150 mg PO DAILY 06/29/19 12/25/21 History sustained-release dextroamphetamine-amphetamine ER 20 mg PO DAILY 06/29/19 12/25/21 History 20 mg 24hr capsule,extend release (Adderall XR) levothyroxine 88 mcg tablet 25 mcg PO DAILY 06/29/19 12/25/21 History hydrocodone 7.5 mg-acetaminophen 1 tablet PO Q8H PRN pain #12 tabs 12/22/21 12/25/21 Rx 325 mg tablet ondansetron 4 mg disintegrating 4 mg PO Q8H PRN nausea and 12/22/21 12/25/21 Rx tablet vomiting #14 tabs vits no.126-ferrous fum 1 tablet PO DAILY 12/25/21 12/25/21 History 28 mg iron-folic acid 800 mcg tablet (Classic ) vitamin E 1,000 unit tablet 1,000 tablet PO DAILY 12/25/21 12/25/21 History Laboratory Tests 12/26/21 12/27/21 12/27/21 04:43 05:09 05:09 WBC 5.5 K/mm3 K/mm3 (4.5-10.0) RBC 3.73 M/mm3 L M/mm3 (4.2-5.4) Hgb 11.2 g/dL L g/dL (12.0-15.0) Hct 33.7 % L % (37.0-47.0) MCV 90.3 fl fl (80-100) MCH 30.0 pg pg (26-34) MCHC 33.2 g/dl g/dl (32-36) RDW 12.6 % % (11.5-14.5) Plt Count 232 k/mm3 k/mm3 (150-375) MPV 9.8 fl fl (7.4-10.4) Immature Gran % (Auto) 0.2 % % (0-0.5) Neut % (Auto) 35.1 % L % (45.5-73.1) Lymph % (Auto) 47.9 % H % (18.3-44.2) [place] % (Auto) 10.8 % H % (2.6-8.5) Eos % (Auto) 4.9 % H % (0-4.4) Baso % (Auto) 1.1 % % (0.2-1.2) Lymph # (Auto) 2.62 K/mm3 K/mm3 (0.9-3.2) [place] # (Auto) 0.6 K/mm3 K/mm3 (0.1-0.6) Eos # (Auto) 0.3 K/mm3 K/mm3 (0-0.3) Baso # (Auto) 0.1 K/mm3 K/mm3 (0.0-0.1) Abs Immat Gran (auto) 0.01 K/mm3 K/mm3 (0.00-0.031) Absolute Neuts (auto) 1.9 K/mm3 K/mm3 (1.3-6.7) Absolute Nucleated RBC 0.0 K/mm3 K/mm3 (0.0-0.012) Nucleated RBC % 0.0 % % (0.0-0.2) Sodium 136 mmol/L L mmol/L (137-145) Potassium 3.3 mmol/L L mmol/L (3.4-5.0) Chloride 107 mmol/L mmol/L (98-107) Carbon Dioxide 27 mmol/L mmol/L (22-30) Anion Gap 2 mmol/L L mmol/L (8-16) BUN 6 mg/dL L mg/dL (7-17) Creatinine 0.70 mg/dL mg/dL (0.7-1.0) Estim Creat Clear Calc 71 ml/min ml/min Estimated GFR > 60 (59 - ) Glucose 87 mg/dL mg/dL (65-110) Calcium 7.5 mg/dL L mg/dL (8.4-10.2) Magnesium 1.8 mg/dL mg/dL (1.6-2.3) Total Bilirubin 0.6 mg/dL mg/dL (0.2-1.3) AST 20 U/L U/L (14-36) ALT 18 U/L U/L (6-35) Alkaline Phosphatase 46 U/L U/L (38-126) Total Protein 5.0 g/dL L g/dL (6.3-8.2) Albumin 3.1 g/dL L g/dL (3.5-5.1) Hepatitis A IgM Ab Negative (Negative) Hep Bs Antigen Negative (Negative) Hep B Core IgM Ab Negative (Negative) Hepatitis C Ab Screen Negative (Negative) Patient hx anesthesia problems: none Family hx anesthesia problems: none Results Review: All pre-operative results and documents have been reviewed as part of th
[2021-12-27 10:45] VITALS: BP 68/34; PULSE 63; RESP 14; O2SAT 99
[2021-12-27 10:55] VITALS: BP 89/59; PULSE 70; RESP 14; O2SAT 100
[2021-12-27 11:05] VITALS: BP 113/89; PULSE 78; RESP 19; O2SAT 100
[2021-12-27] MEDS: POTASSIUM CHLORIDE INJ 40 MEQ in SODIUM CHLORIDE 0.9% IV 500 ML 130 MEQ IVPB (11:34)
[2021-12-27] MEDS: PANTOPRAZOLE SODIUM IV 40 MG VIAL IV PUSH (11:34)
--- NOTE | 2021-12-27 12:32 | PM.PNGS ---
Progress Note: A&P Assessment and Plan (1) Intractable right upper quadrant abdominal pain: Code(s): R10.11 - Right upper quadrant pain Status: Acute Assessment and Plan: HIDA scan normal. Gallbladder etiology seems less likely. Advised on typical gallbladder symptoms and need for follow up if increasing symptoms noted. Always possible that she had a small gallstone and this passed before imaging was done. No other gallstones noted so no indication for surgery at this time. OK to discharge from surgical standpoint. Follow up as needed. (2) Esophagitis with gastritis: Code(s): K29.70 - Gastritis, unspecified, without bleeding; K20.90 - Esophagitis, unspecified without bleeding Status: Acute (3) Abnormal ultrasound of liver: Code(s): R93.2 - Abnormal findings on diagnostic imaging of liver and biliary tract Status: Acute Subjective Subjective Date/Time Seen: 12/27/21 12:32 Interval history: Patient doing well today. Pain improving. No nausea/vomiting. Exam GI: Inspection: normal to inspection GI Palp: Yes Soft to palpation, No Tenderness to palpation present (GI) and No Guarding due to palpation present (GI) Objective Data Vital Signs Vital Signs: Vital Signs - 24 hr 12/26/21 14:20 12/26/21 20:46 12/27/21 05:56 Temperature 36.6 C 36.4 C 37.0 C Pulse Rate 58 L 58 L 56 L Respiratory Rate 14 12 14 Blood Pressure 110/70 101/61 116/60 Pulse Oximetry 100 96 96 Oxygen Delivery 12/27/21 10:45 12/27/21 10:55 12/27/21 11:05 Temperature Pulse Rate 63 70 78 Respiratory Rate 14 14 19 Blood Pressure 68/34 L 89/59 L 113/89 Pulse Oximetry 99 100 100 Oxygen Delivery Room Air Room Air Room Air Intake/Output Intake/Output: Intake & Output 12/24/21 12/25/21 12/26/21 12/27/21 23:59 23:59 23:59 23:59 Intake Total 1050 2480 1675 Output Total 600 Balance 1050 1880 1675 Meds/Results Medications: Active Medications Generic Name Dose Route Start Last Admin Trade Name Freq PRN Reason Stop Dose Admin Sodium Chloride 1,000 mls @ 100 mls/hr 12/25/21 18:10 12/27/21 02:36 Normal Saline Iv IV CONT 100 mls/hr .Q10H FANG Administration Levothyroxine Sodium 25 mcg 12/26/21 06:30 12/27/21 06:16 Levothyroxine Sodium 25 Mcg Tablet PO 25 mcg DAILY@0630 FANG Administration Morphine Sulfate 2 mg 12/25/21 22:57 12/26/21 23:33 Morphine Sulfate (*Crx) 2 Mg/Ml Inj IV PUSH 2 mg Q4H PRN Administration Pain Rated 7-10 Pantoprazole Sodium 40 mg 12/26/21 09:00 12/27/21 11:34 Pantoprazole Sodium Iv 40 Mg Vial IV PUSH 40 mg QAM FANG Administration Radiology Results: ITS Impressions Abdomen Ultrasound 12/25/21 16:43 IMPRESSION: 1. Positive sonographic Brunson sign, with otherwise normal sonographic appearance of the gallbladder. Consider hepatobiliary scanning for further evaluation. 2. Increased liver echogenicity as can be seen with steatosis, fibrosis, and hepatitis. 3. Mild periportal edema. Abdomen/Pelvis CT 12/25/21 17:57 IMPRESSION: Esophagitis/gastritis. Interval resolution of the previously described gallbladder wall edema and periportal edema. Heterogeneous liver parenchyma as can be seen with fibrosis and hepatitis. Hepatobiliary Scan Nuclear Medicine 12/27/21 09:23 IMPRESSION: 1. Normal hepatobiliary scan Labs Labs: Laboratory Results - last 24 hr 12/26/21 12/27/21 12/27/21 04:43 05:09 05:09 WBC 5.5 RBC 3.73 L Hgb 11.2 L Hct 33.7 L MCV 90.3 MCH 30.0 MCHC 33.2 RDW 12.6 Plt Count 232 MPV 9.8 Immature Gran % (Auto) 0.2 Neut % (Auto) 35.1 L Lymph % (Auto) 47.9 H [place] % (Auto) 10.8 H Eos % (Auto) 4.9 H Baso % (Auto) 1.1 Lymph # (Auto) 2.62 [place] # (Auto) 0.6 Eos # (Auto) 0.3 Baso # (Auto) 0.1 Abs Immat Gran (auto) 0.01 Absolute Neuts (auto) 1.9 Absolute Nucleated RBC 0.0 Nucleated RBC % 0.
--- NOTE | 2021-12-27 13:45 | PM.DS ---
DS: Admitting Diagnosis Discharge Date 12/27/21 1345 Admitting Diagnosis Gastritis DS: Discharge Diagnosis Discharge Diagnosis (1) Abdominal pain: Code(s): R10.9 - Unspecified abdominal pain Status: Acute Assessment and Plan: CT of the abdomen and pelvis on 12/22/2021 showed gallbladder wall thickening which was felt to be secondary to interstitial edema repeat CT gallbladder was unremarkable (12/25/21) Symptoms are more likely related to esophagitis/gastritis Right upper abdominal pain after eating fatty meals gallbladder dysfunction should be considered HIDA scan showed normal gallbladder functioning General surgery on board Liver enzymes slightly elevated upon admission, currently normal IV fluids for hydration Zofran for nausea Pain medications on board GI also consulted (2) Esophagitis with gastritis: Code(s): K29.70 - Gastritis, unspecified, without bleeding; K20.90 - Esophagitis, unspecified without bleeding Status: Acute Assessment and Plan: CT of the abdomen shows gastritis/esophagitis GI consulted Supportive care EGD showed gastritis or esophagitis IV fluids Pain medications Zofran Protonix 40 mg p.o. daily x6 weeks (3) Dehydration: Code(s): E86.0 - Dehydration Status: Acute Assessment and Plan: Resolved Continue judicious IV fluid rehydration. (4) Hypothyroidism: Code(s): E03.9 - Hypothyroidism, unspecified Status: Acute Assessment and Plan: Continue levothyroxine TSH 3.830 DS: Summary Hospital Course Hospital Course: Patient is a 41-year-old female with a past medical history of anxiety and depression, hypothyroidism presented to the ED with severe abdominal happy with nausea. Upon arrival liver enzymes are slightly elevated and her labs were otherwise okay. CT of the abdomen pelvis from this admission shows gastritis or esophagitis. Gallbladder was normal. She did have a positive Brunson sign further with ultrasound however the gallbladder was normal. Patient also went through a HIDA scan. Which showed normal gallbladder activity. GI was consulted along with General surgery. GI did take patient down for an EGD which did show gastritis. Patient denies any chest pain, shortness of breath, nausea, vomiting, diarrhea, constipation, weakness or fatigue. Patient is stable for discharge according to labs and vital signs. Patient will need to continue with the Protonix daily. Patient is instructed regular diet has been able to tolerate foods. Patient was also noted upon arrival be dehydrated to the nausea vomiting and was started on IV fluids which have been shown office recently. She has had no symptoms of nausea vomiting since she has been here. Patient denies any chest pain, shortness a breath, nausea, vomiting, diarrhea, constipation, weakness or fatigue Status at Discharge Functional status at discharge: independent ambulation Overall status at discharge: patient is progressing back to baseline Time Spent with Patient Time attestation: Total time spent providing and/or coordinating discharge services: 38 minutes Time spent: Greater than 30 minutes Specific discharge activities: Diagnostic testing, chart review, developing a treatment plan, education, care coordination documentation, physical exam, result review Exam Const: General: cooperative, healthy appearing, no acute distress, well developed, alert and awake Nutritional Appearance: well nourished Orientation/consciousness: patient oriented x3 Limitations: no limitations HENMT: Head: normal to inspection Ears: hearing grossly normal bilaterally General nose exam: Normal external nose present Mouth: Yes Normal oral and palatal mucosa present, Yes lip normal and Yes tongue normal Teeth and gingiva: abnormal tooth and associated gingiva and poor dentition Eyes: General: appearance normal, both eyes and all related structur
[2021-12-27 14:00] VITALS: BP 94/60; PULSE 67; RESP 12; TEMP 36.6; O2SAT 100
[2021-12-27] MEDS: HYDROcodone/acetaminophen (*CRX) 5-325 MG TABLET 1 TAB PO (14:58)
== END 2021-12-27 16:10 | disposition home or self-care (01) ==
LOC: ANHED 18:12 → ANH2MED 20:48
PROVIDERS: Internal Medicine Gastroenterology; Physician Assistant; Admitting Provider Family Medicine; Emergency Provider Emergency Medicine; PCP Family Medicine Sports Medicine; Visit Provider Nurse Practitioner
PROC: 0DJ08ZZ Inspection of Upper Intestinal Tract, Via Natural or Artificial Opening Endoscopic (ICD-10-PCS; CPT 43235; principal; 2021-12-27 12:00)
DX: K29.70 Gastritis, unspecified, without bleeding (principal); E86.0 Dehydration; E87.6 Hypokalemia; R93.2 Abnormal findings on diagnostic imaging of liver and biliary tract; E03.9 Hypothyroidism, unspecified; F17.210 Nicotine dependence, cigarettes, uncomplicated; F17.290 Nicotine dependence, other tobacco product, uncomplicated
CPT/HCPCS: 43239; 36415; 74177; 76705; 78227; 80053; 80074; 81001; 81025; 83605; 83690; 83735; 84443; 85025; 88305; 96360; 96361; 96374; 96375; 96376; 99285; A9270; A9537; C9113; G0378; J1885; J2001; J2270; J2405; J2550; J2704; J2805; J3480; J7030; J7040; J7120; Q9967